=== PATIENT | male | born 1995 | race Two or more races ===

== ENCOUNTER 2024-09-21 14:34 | Emergency (ER) | payer MEDICAID ==
[~2024-09-21] VITALS: Ht 165.1 cm; Wt 100.9 kg
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
--- NOTE | 2024-09-21 16:46 | DVH ---
EXAM: CT HEAD WITHOUT CONTRAST; DATE: 09/21/2024 03:44 PM HISTORY: r/o intracranial bleed. COMPARISON: None TECHNIQUE: Axial images were obtained and reformatted in coronal and sagittal planes. All CT scans at this medical facility are performed using dose modulation techniques as appropriate t o a performed exam including the following: Automated exposure control was utilized; adjustment of th e MA and/or KV according to patient size; and use of iterative reconstruction technique. CT Dose: CTDI volume is C4 mGy. Dose-length product is 38 mGy*cm FINDINGS: Supratentorial Region: No evidence for large acute territorial ischemia. No intracranial hemorrhage is noted. Posterior Fossa: No acute abnormality. Brainstem: Unremarkable. Sellar/Suprasellar Region: Unremarkable. Ventricles, Cisterns, Sulci: Age-appropriate. Orbits: Unremarkable. Paranasal Sinuses: Unremarkable. Mastoid Air Cells: Unremarkable. Vasculature: Unremarkable. Bones/Soft Tissues: No acute abnormality. Other: None. IMPRESSION: 1. No acute intracranial abnormality.
[2024-09-21 16:52] VITALS: PULSE 92; RESP 16; O2SAT 96
[2024-09-21 16:55] VITALS: BP 108/63; PULSE 92; RESP 16; TEMP 98.2; O2SAT 96
[2024-09-21] MEDS: TETANUS-DIPTH-ACEL PERTUSSIS 0.5ML SYR Tdap IM ONE (16:56)
[2024-09-21] MEDS: KETOROLAC TROMETH 30 MG/ML 1ML VIAL IM ONE (17:09)
[2024-09-21] MEDS ORDERED: CYCL-838 PO (18:27)
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
== END 2024-09-21 19:35 | disposition home or self-care (01) ==
LOC: ER 14:43
DX: S79.911A Unspecified injury of right hip, initial encounter (principal); R51.9 Headache, unspecified; M62.838 Other muscle spasm; Z79.899 Other long term (current) drug therapy; V89.2XXA Person injured in unspecified motor-vehicle accident, traffic, initial encounter; Y93.89 Activity, other specified; Y92.89 Other specified places as the place of occurrence of the external cause; Y99.8 Other external cause status
CPT/HCPCS: 70450; 72040; 72170; 90471; 90715; 96372; 99285; J1885